=== PATIENT | female | born 1995 | race Caucasian/White ===

== ENCOUNTER 2021-07-26 18:14 | Emergency (ER) | payer OTHER ==
[~2021-07-26] VITALS: Ht 160 cm; Wt 72.6 kg
[2021-07-26 18:36] LABS: URINE BLOOD NEGATIVE (Negative); URINE CLARITY CLEAR; URINE COLOR YELLOW; URINE GLUCOSE-RANDOM* NEGATIVE (Negative); URINE KETONES 1+ (Negative); URINE LEUKOCYTES-REFLEX NEGATIVE (Negative); URINE NITRITE-REFLEX NEGATIVE (Negative); URINE PROTEIN (DIPSTICK) 1+ (Negative); URINE SPECIFIC GRAVITY >= 1.030 (1.005-1.035)
[2021-07-26 18:38] LABS: ICTOTEST (BILI CONFIRMATORY) Negative (Negative); URINE BILIRUBIN NEGATIVE (Negative)
[2021-07-26 18:49] LABS: CASTS None Seen /LPF (None Seen); CRYSTALS None Seen /LPF (None Seen); MUCUS 0-3 Light strn/LPF (None Seen); SQUAMOUS 4-10 Moderate /LPF (0-3); URINE RBC None Seen /HPF (NONE SEEN); URINE WBC-REFLEX 0-5 Rare /HPF (0-5)
[2021-07-26 21:20] LABS: ABSOLUTE NEUTROPHILS 4.2 thou/uL (1.4-8.2); BASOPHILS 0.8 % (0.0-2.0); EOSINOPHILS 0.7 % (0.0-3.0); HEMATOCRIT 39.3 % (37.0-47.0); HEMOGLOBIN 13.2 gm/dL (12.0-15.0); LYMPHOCYTES 29.5 % (24.0-44.0); MCH 29.4 pg (26.0-34.0); MCHC 33.5 g/dL (28.0-37.0); MCV 87.8 fL (80.0-100.0); MONOCYTES 7.6 % (1.0-8.0); PLATELET COUNT 237 thou/uL (150-400); POLYS 61.4 % (36.0-66.0); RBC 4.48 mil/uL (4.20-5.00); RDW 12.5 % (10.5-14.5); WBC 6.8 thou/uL (4.0-11.0)
[2021-07-26 21:22] LABS: CALCIUM 8.6 mg/dL (8.5-10.1); CREATININE 0.8 mg/dL (0.6-1.0); POTASSIUM 3.8 mmol/L (3.5-5.1)
[2021-07-26 21:27] LABS: ALBUMIN 3.3 g/dL (3.4-5.0); TOTAL BILIRUBIN 0.2 mg/dL (0.2-1.0); TOTAL PROTEIN 7.4 g/dL (6.4-8.2)
[2021-07-26 21:59] VITALS: BP 117/86
== END 2021-07-26 22:00 | disposition home or self-care (01) ==
LOC: ER 18:14
PROVIDERS: Physician Assistant
DX: R10.31 Right lower quadrant pain (principal); Z90.11 Acquired absence of right breast and nipple